=== PATIENT | male | born 1980 | race Caucasian/White ===

== ENCOUNTER 2021-03-23 10:15 | Outpatient (CLI) | payer OTHER, MEDICARE, SELFPAY ==
--- NOTE | ~2021-03-23 | XR_ITS ---
EXAMINATION: XR abdomen/kub 1V DATE: 03/23/2021 10:31 INDICATION: Diarrhea, unspecified. TECHNIQUE: A supine view of the abdomen on 2 radiographs was obtained. COMPARISON: CT abdomen and pelvis 10/15/2016 FINDINGS: There are no dilated loops of bowel. A catheter overlies right abdomen. There is a 5.1 cm s tone in the prostate. There is a chronic catheter fragment in left abdomen. There is a chronic cathet er fragment in the upper abdomen. Surgical clips in the right upper quadrant are likely from cholecys tectomy. 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 IMPRESSION: 1. Nonobstructive bowel gas pattern. 2. 5.1 cm stone in the prostate. 3. Chronic catheter fragments in the abdomen. Reviewed, dictated and finalized at location A. [employer]
== END 2021-03-23 10:16 | disposition home or self-care (01) ==
PROVIDERS: PCP Emergency Medicine; Visit Provider Nurse Practitioner Family
DX: R19.7 Diarrhea, unspecified (principal); N42.0 Calculus of prostate
CPT/HCPCS: 74018

== ENCOUNTER 2021-07-06 00:07 | Day surgery (SDC) | payer OTHER, MEDICARE, SELFPAY ==
[2021-06-22 11:08] VITALS: BMI 25.7
[2021-07-06 06:32] VITALS: BP 116/76; PULSE 107; RESP 18; TEMP 36.4; O2SAT 100
[2021-07-06] MEDS: LACTATED RINGERS 1,000 ML 150 ML IV CONT (06:43)
--- NOTE | 2021-07-06 07:24 | P.PNAN_ITS ---
Anes - Initial Pre Proc Eval Procedure: Operation Date: 07/06/21 07:30 Proposed Procedures p Esophagogastroduodenoscopy & Colonoscopy - Kenn Fernandez MD Date/Time: 07/06/21 07:24 Surgeon: Kenn Fernandez MD Pre Op Diagnosis: change in bowel habits, nausea, vomiting Patient Data Age: 41 Gender: M Height: 1.6 m Weight: 61 kg Last Vital Signs Temp 97.6 F 07/06/21 06:32 Pulse 107 H 07/06/21 06:32 Resp 18 07/06/21 06:32 BP 116/76 07/06/21 06:32 Pulse Ox 100 07/06/21 06:32 O2 Del Method Room Air 07/06/21 06:32 Allergies Allergy/AdvReac Type Severity Reaction Status Date / Time latex Allergy Unknown Rash Verified 07/06/21 06:31 Penicillins Allergy Unknown Rash Verified 07/06/21 06:31 Home Medications Medication Instructions Recorded Confirmed Type lisinopril 10 mg tablet 10 mg PO DAILY 03/23/21 06/22/21 History zolpidem 10 mg tablet 10 mg PO QHS PRN Sleep 03/23/21 06/22/21 History cetirizine 10 mg tablet (Zyrtec) 10 mg PO DAILY 06/22/21 06/22/21 History Patient hx anesthesia problems: none Family hx anesthesia problems: none Results Review: All pre-operative results and documents have been reviewed as part of the pre- operative evaluation. [facility] Past Medical History Medical History (Updated 03/23/21 @ 09:58 by TIKA Tapia) Diarrhea Hypertension Spina bifida Social History Social History (Updated 03/23/21 @ 09:13 by Lisa Riley CMA) Smoking status: Never smoker Alcohol intake: never Alcohol use details: social Substance use: never Substance use type: does not use Living arrangements: alone Spiritual care concerns: No Anes - Eval Final PreProcedure Day of Procedure 07/06/21 07:24 Patient weight: normal Heart: regular rate and rhythm Lungs: clear to auscultation Airway: Mallampati scale class II Neurological: alert and oriented Last oral intake: >/= 8 hours ASA classification: III Emergent: no Anesthetic plan: proceed Results Review: All pre-operative results and documents have been reviewed as part of the pre- operative evaluation. Informed Consent: The patient's anesthetic plan and its attendant risks and benefits were discussed with the patient/family/POA. Questions were solicited and answers provided to the satisfaction of the patient/family/POA.
--- NOTE | 2021-07-06 07:31 | PM.HPGS ---
History of Present Illness History of Present Illness Consent: Risks, benefits, and alternatives have been discussed and questions answered. Patient agrees to proceed with procedure. Chief complaint: change in bowel habits, nausea, vomiting Narrative: Robinson Christiansen is a 41 year old male here for egd and colonoscopy?hx of spina bifida, myelomeningocele s/p V/P shunt, cholecystectomy,? and TOÑA procedure (it was done because constipation) who was seen in office earlier this year for complaints of lack of appetite, vomiting, and change in bowel habits. He never had scopes and recently has been doing better after changing his diet. Review of Systems Constitutional: Constitutional: Denies headache(s) and Denies weakness Eyes: Eyes: Denies blurry vision ENT: Reports Normal hearing present, Denies headache(s) and Denies neck pain Cardiovascular: Cardiovascular: Denies chest pain and Denies dyspnea Respiratory: Respiratory: Denies dyspnea Gastrointestinal: Gastrointestinal: Reports no additional gastrointestinal complaints Integumentary/Breasts: Skin/Breast: Denies dry skin Neurologic: Reports Normal hearing present and Denies headache(s) Comments: spine bifida Psychiatric: Psychiatric: Denies anxiety Endocrine: Endocrine: Denies change in body appearance Hematologic/Lymphatic: Hematologic/Lymphatic: Denies easy bleeding Allergic/Immunologic: Allergic/Immunologic: Denies urticaria PMFSH Past Medical History Medical History (Updated 07/06/21 @ 07:34 by Kenn Fernandez MD) Bowel habit changes Diarrhea Hypertension Nausea & vomiting Spina bifida Social History Social History (Updated 03/23/21 @ 09:13 by Lisa Riley CMA) Smoking status: Never smoker Alcohol intake: never Alcohol use details: social Substance use: never Substance use type: does not use Living arrangements: alone Spiritual care concerns: No Meds Home Medications and Allergies Home Medications Medication Instructions Recorded Confirmed Type lisinopril 10 mg tablet 10 mg PO DAILY 03/23/21 06/22/21 History zolpidem 10 mg tablet 10 mg PO QHS PRN Sleep 03/23/21 06/22/21 History cetirizine 10 mg tablet (Zyrtec) 10 mg PO DAILY 06/22/21 06/22/21 History Allergies Allergy/AdvReac Type Severity Reaction Status Date / Time latex Allergy Unknown Rash Verified 07/06/21 06:31 Penicillins Allergy Unknown Rash Verified 07/06/21 06:31 Vital Signs Vital Signs - 24 hr 07/06/21 06:32 Temperature 97.6 F Pulse Rate 107 H Respiratory Rate 18 Blood Pressure 116/76 Pulse Oximetry 100 Oxygen Delivery Room Air Exam Const: General: comfortable and no acute distress HENMT: General nose exam: Normal nares present Eyes: General: appearance normal, both eyes and all related structures Neck: Neck: no JVD Resp: Auscultation: clear to auscultation bilaterally Cardio: Rate: regular rate Rhythm: regular rhythm GI: Inspection: non-distended GI Palp: Yes Soft to palpation Skin: General skin exam: normal color Neuro: Other: spina bifida Extrem: General: normal to inspection Psych: Mental Status: mental status grossly normal Assessment and Plan Assessment and plan (1) Nausea & vomiting: Code(s): R11.2 - Nausea with vomiting, unspecified Status: Acute Assessment and Plan: improved, will do egd (2) Bowel habit changes: Code(s): R19.4 - Change in bowel habit Status: Acute Assessment and Plan: colonoscopy, never had one could be related to underlying neurological condition (3) Spina bifida: Code(s): Q05.9 - Spina bifida, unspecified Status: Inactive
--- NOTE | 2021-07-06 07:55 | SUR.OPER ---
EGD ENDED AT 0747, SIGMOIDOSCOPY BEGAN AT 0754.
[2021-07-06 08:03] VITALS: BP 117/75; PULSE 83; RESP 12; O2SAT 96
[2021-07-06 08:13] VITALS: BP 136/77; PULSE 94; RESP 20; O2SAT 96
[2021-07-06 08:23] VITALS: BP 121/84; PULSE 86; RESP 15; O2SAT 100
== END 2021-07-06 08:47 | disposition home or self-care (01) ==
PROVIDERS: PCP Emergency Medicine; Visit Provider Internal Medicine Gastroenterology
PROC: 0DJ08ZZ Inspection of Upper Intestinal Tract, Via Natural or Artificial Opening Endoscopic (ICD-10-PCS; CPT 43235; principal; 2021-07-06 07:30)
DX: R11.2 Nausea with vomiting, unspecified (principal); R19.4 Change in bowel habit; K22.10 Ulcer of esophagus without bleeding; K21.00 Gastro-esophageal reflux disease with esophagitis, without bleeding; K29.50 Unspecified chronic gastritis without bleeding; K44.9 Diaphragmatic hernia without obstruction or gangrene; I10 Essential (primary) hypertension; Q05.9 Spina bifida, unspecified; Z98.2 Presence of cerebrospinal fluid drainage device
CPT/HCPCS: 43251; 43239; 45330; 88305; 88342; J2704; J7120

== ENCOUNTER 2024-02-23 15:36 | Emergency (ER) | payer OTHER, MEDICARE, SELFPAY ==
[2024-02-23 15:40] VITALS: BP 148/115; PULSE 109; RESP 18; TEMP 36.8
--- NOTE | 2024-02-23 18:53 | ED_ITS ---
HPI - Abdominal Pain General Chief Complaint: Abdominal Pain Stated Complaint: abd pain Time Seen by Provider: 02/23/24 18:53 Focused HPI: This is a 43 year old male that presents to the ER for abdominal pain. Reports he had a UTI one month ago. Reports he self caths. Reports he recently started taking iron pills. He was getting very constipated, so he was told to stop taking those. Reports now he is experiencing diarrhea. GENERAL: Well-appearing, well-nourished, and in no acute distress. HEAD: Normocephalic, atraumatic. CHEST: Clear to auscultation. ?No respiratory distress. HEART: Regular rate and rhythm.? NEURO: ?Alert and oriented x3. Patient screened in triage and initial orders placed.? ?Additional care and disposition to be based upon?diagnostic testing and treatment. Related Data Home Medications ?Medication ?Instructions ?Recorded ?Confirmed ?Last Taken ?Type lisinopril 10 mg tablet 10 mg PO DAILY 03/23/21 06/22/21 07/05/21 History zolpidem 10 mg tablet 10 mg PO QHS PRN Sleep 03/23/21 06/22/21 07/05/21 History cetirizine 10 mg tablet (Zyrtec) 10 mg PO DAILY 06/22/21 06/22/21 07/05/21 History Allergies Allergy/AdvReac Type Severity Reaction Status Date / Time latex Allergy Unknown Rash Verified 07/06/21 06:31 Penicillins Allergy Unknown Rash Verified 07/06/21 06:31 FOR[facility], [facility] Past Medical History Medical History (Updated 02/24/24 @ 17:45 by Pura Tinajero PA-C) Bowel habit changes Nausea & vomiting Diarrhea Hypertension Spina bifida Social History Social History (Updated 03/23/21 @ 09:13 by Lisa Riley CMA) Smoking status: Never smoker Alcohol intake: never Alcohol use details: social Substance use: never Substance use type: does not use Living arrangements: alone Spiritual care concerns: No Course Vital Signs Vital signs: Vital Signs Temperature 98.2 F 02/23/24 15:40 Pulse Rate 109 H 02/23/24 15:40 Respiratory Rate 18 02/23/24 15:40 Blood Pressure 148/115 H 02/23/24 15:40 Temperature 98.2 F 02/23/24 15:40 Pulse Rate 83 02/23/24 20:48 Respiratory Rate 18 02/23/24 20:48 Blood Pressure 146/97 H 02/23/24 20:48 Pulse Oximetry 99 02/23/24 20:48 Discharge Plan Discharge Clinical Impression: Acute diarrhea Abdominal pain Qualifiers: Abdominal location: unspecified location Qualified Code(s): R10.9 - Unspecified abdominal pain Patient Disposition: Elopement After Seen by Prov Condition: Guarded Prognosis Instructions: Antibiotic Form Patient Language: Luxembourgish Prescriptions: No Action zolpidem 10 mg tablet 10 mg PO QHS PRN (Reason: Sleep) lisinopril 10 mg tablet 10 mg PO DAILY cetirizine [Zyrtec] 10 mg Tablet 10 mg PO DAILY omeprazole 40 mg capsule,delayed release(DR/EC) 40 mg PO BID Qty: 60 5RF Follow-up/Referrals: Ann-Marie,Michael Brooke MD [Primary Care Provider] -
[2024-02-23 19:04] VITALS: PULSE 109
[2024-02-23 20:48] VITALS: BP 146/97; PULSE 83; RESP 18; O2SAT 99
--- NOTE | 2024-02-23 21:28 | PC.NURSE ---
Patient comes to desk in personal w/c and states I think I am going to leave, I am going home. Patient informed of risks of leaving before being seen by a provider and benefits of staying for evaluation. Patient verbalized understanding, is a/ox4. Patient wheeled out of the ED with belongings in hand.
== END 2024-02-23 21:42 | disposition left against medical advice (07) ==
LOC: ANHED 21:40
PROVIDERS: Emergency Provider Physician Assistant; PCP Emergency Medicine
DX: R19.7 Diarrhea, unspecified (principal); R10.9 Unspecified abdominal pain; I10 Essential (primary) hypertension
CPT/HCPCS: 99281

== ENCOUNTER 2024-08-02 12:35 | Emergency (ER) | payer OTHER, SELFPAY ==
[2024-08-02 12:38] VITALS: BP 124/78; PULSE 96; RESP 20; TEMP 36.4; O2SAT 98
--- NOTE | 2024-08-02 14:44 | ED_ITS ---
HPI - Skin/Abscess/Foreign Bdy General Chief complaint: Skin/Abscess/Foreign Body Stated complaint: insect bite to LFA Time Seen by Provider: 08/02/24 14:07 Source: patient Mode of arrival: ambulatory Limitations: no limitations History of Present Illness HPI narrative: This is a 44-year-old male that presents to the emergency department for a possible insect bite. Reports he was at a game last night. He felt something bite or sting on his left forearm. The area has had worsening redness today which prompted him to be seen. The area is itchy and mildly uncomfortable. Denies fevers or drainage. Related Data Home Medications ?Medication ?Instructions ?Recorded ?Confirmed ?Last Taken ?Type lisinopril 10 mg tablet 10 mg PO DAILY 03/23/21 06/22/21 07/05/21 History zolpidem 10 mg tablet 10 mg PO QHS PRN Sleep 03/23/21 06/22/21 07/05/21 History cetirizine 10 mg tablet (Zyrtec) 10 mg PO DAILY 06/22/21 06/22/21 07/05/21 History Allergies Allergy/AdvReac Type Severity Reaction Status Date / Time latex Allergy Unknown Rash Verified 08/02/24 12:36 Penicillins Allergy Unknown Rash Verified 08/02/24 12:36 Review of Systems Review of Systems: CONSTITUTIONAL: Denies fever SKIN: Reports redness and itching. All systems reviewed & are unremarkable except as noted in HPI and below PMFSH Past Medical History Medical History (Updated 08/02/24 @ 14:45 by Pura Tinajero PA-C) Bowel habit changes Nausea & vomiting Diarrhea Hypertension Spina bifida Social History Social History (Updated 03/23/21 @ 09:13 by Lisa Riley CMA) Smoking status: Never smoker Alcohol intake: never Alcohol use details: social Substance use: never Substance use type: does not use Living arrangements: alone Spiritual care concerns: No Exam Narrative: GENERAL: Well-appearing, well-nourished, and in no acute distress. HEAD: Normocephalic, atraumatic. EYES: EOMI. EXTREMITIES: Normal range of motion. No edema or fluctuance. Left forearm with mild to moderate area of circular redness. No lymphangitic streaking SKIN: Warm, dry, no rash. NEURO: No focal deficits. Alert and oriented x3. PSYCH: Normal mood and affect Course Vital Signs Vital signs: Vital Signs Temperature 97.6 F 08/02/24 12:38 Pulse Rate 96 08/02/24 12:38 Respiratory Rate 20 08/02/24 12:38 Blood Pressure 124/78 08/02/24 12:38 Pulse Oximetry 98 08/02/24 12:38 Oxygen Delivery Room Air 08/02/24 12:38 Temperature 97.6 F 08/02/24 12:38 Pulse Rate 96 08/02/24 12:38 Respiratory Rate 20 08/02/24 12:38 Blood Pressure 124/78 08/02/24 12:38 Pulse Oximetry 98 08/02/24 12:38 Oxygen Delivery Room Air 08/02/24 12:38 MDM - Skin/Abscess/Foreign Bdy MDM Narrative Medical decision making narrative: Patient presents to the emergency department for possible insect bite to the left forearm. There is [id number] surrounding redness. No fluctuance. Patient is afebrile and nontoxic appearing. No lymphangitic streaking. Given topical antibiotic, instructed on use of antihistamines. He is to follow up with primary provider. He was given warnings to return to the ER Differential Diagnosis Differential diagnosis: Likely urticaria, cellulitis, eczema, insect bites, impetigo and contact dermatitis Critical Care Time Critical Care Time Critical Care Time: No Discharge Plan Discharge Clinical Impression: Insect bite Patient Disposition: Home Condition: Stable Instructions: Insect Bite or Sting (ED) Additional Instructions: Return to the emergency department if you experience fever, redness and swelling of your wounds, abnormal drainage from your wound, or any other symptoms that are concerning to you Take a Pepcid and Zyrtec daily. Benadryl as needed for severe itching. Apply antibiotic ointment daily Follow-up with your primary care doctor Patient Language: Cook Islander Prescriptions: New mupirocin [Centany] 2 % ointment 1 applic topical BID 7 Days Qty: 15 0RF No Action zolpidem 10 mg tablet 10 mg PO QHS PRN (Reason: Sleep) lisinopril 10 mg tablet 10 mg PO DAILY cetirizine [Zyrtec] 10 mg Tablet 10 mg PO DAILY omeprazole 40 mg capsule,delayed release(DR/EC) 40 mg PO BID Qty: 60 5RF Follow-up/Referrals: Ann-Marie,Michael Brooke MD [Primary Care Provider] -
== END 2024-08-02 15:00 | disposition home or self-care (01) ==
PROVIDERS: Emergency Provider Physician Assistant; PCP Emergency Medicine
DX: S50.862A Insect bite (nonvenomous) of left forearm, initial encounter (principal); I10 Essential (primary) hypertension; Q05.9 Spina bifida, unspecified; W57.XXXA Bitten or stung by nonvenomous insect and other nonvenomous arthropods, initial encounter
CPT/HCPCS: 99283